=== PATIENT | female | born 1935 | race Caucasian/White ===

== ENCOUNTER 2021-12-24 17:44 | Emergency (ER) | payer MEDICARE ==
[~2021-12-24] VITALS: Ht 167.6 cm; Wt 86.4 kg
[~2021-12-24 17:44] MED LIST: *BLDWK7; *HOLTER -; *MAMMOGRAM; ACIPHEX; ACTONEL35 PO; ASPI325T; BONIVA IV; BONIVA PO; CELEBRE200; CIPRO500 PO; COLA100C2; CORE6.25; CYMBALTA20 PO; CYMBALTA30 PO; DRISDOL50 PO; EFFEXORXL7; FLAGYL500 PO; LOTRISCREA TOPICALLY; MACROBID; MACROBID PO; NEURONTIN3 PO; PAMELOR PO; PENVK250 PO; PREMARI625 PO; PREMARIVAG VAGINALLY; PREVACID30 PO; PROTONIX40; THERGRAN; TRAZ0DON5; ULTRAM50; VICODIN7.5 PO; VIOXX25 PO; VITAMIND PO; XALANTAN; ZANTAC150 PO; [UNRECOGNIZED DRUG - OTHER]; [UNRECOGNIZED DRUG - SUPPLY]
[2021-12-24 19:40] VITALS: BP 157/91
== END 2021-12-24 19:53 | disposition home or self-care (01) ==
LOC: EDBD 17:44 → M ED 17:44
DX: S09.90XA Unspecified injury of head, initial encounter (principal); W01.0XXA Fall on same level from slipping, tripping and stumbling without subsequent striking against object, initial encounter; K58.9 Irritable bowel syndrome, unspecified; M06.9 Rheumatoid arthritis, unspecified; K21.9 Gastro-esophageal reflux disease without esophagitis; Z86.79 Personal history of other diseases of the circulatory system; Z79.01 Long term (current) use of anticoagulants; Z88.0 Allergy status to penicillin; Z88.6 Allergy status to analgesic agent; Z91.011 Allergy to milk products; Z79.899 Other long term (current) drug therapy; Y93.9 Activity, unspecified; Y99.9 Unspecified external cause status; Y92.9 Unspecified place or not applicable

== ENCOUNTER → 2022-03-14 | Outpatient (CLI) | payer MEDICARE | LOC: M PLAIMG 14:07 → M RAD 14:07 | PROVIDERS: ATTEND Internal Medicine | DX: G91.2 (Idiopathic) normal pressure hydrocephalus (principal) ==

== ENCOUNTER 2022-04-13 15:20 | Emergency (ER) | payer MEDICARE ==
[~2022-04-13] VITALS: Ht 170.2 cm; Wt 91.8 kg
[2022-04-13 15:42] VITALS: BP 121/80
[2022-04-13] MEDS ORDERED: FURO20TA2 PO (16:18)
[2022-04-13] MEDS ORDERED: XARE20TA PO (16:18)
[2022-04-13] MEDS ORDERED: XALA0.007 OU (16:18)
[2022-04-13] MEDS ORDERED: LOPE2TAB12 PO (16:18)
[2022-04-13] MEDS ORDERED: METO1TAB87 PO (16:18)
[2022-04-13] MEDS ORDERED: FLON1SPR NARES (16:18)
[2022-04-13] MEDS ORDERED: LEVO75TA4 PO (16:18)
[2022-04-13] MEDS ORDERED: HOME MED LIST COMPLETE! XX SCH (16:20)
== END 2022-04-13 18:37 | disposition home or self-care (01) ==
LOC: EDBD 15:20 → M ED 16:15
DX: E16.2 Hypoglycemia, unspecified (principal); W07.XXXA Fall from chair, initial encounter; K58.9 Irritable bowel syndrome, unspecified; Z88.0 Allergy status to penicillin; Z88.1 Allergy status to other antibiotic agents; Z88.8 Allergy status to other drugs, medicaments and biological substances; Z91.011 Allergy to milk products; Z79.01 Long term (current) use of anticoagulants; Z79.899 Other long term (current) drug therapy

== ENCOUNTER → 2022-05-19 | Outpatient (CLI) | payer MEDICARE ==
[~2022-05-19] MED LIST changes: +FLON1SPR NARES; +FURO20TA2 PO; +LEVO75TA4 PO; +LOPE2TAB12 PO; +METO1TAB87 PO; +XALA0.007 OU; +XARE20TA PO
== END ==
LOC: M WUC 15:05
PROVIDERS: ATTEND Internal Medicine
DX: R06.00 Dyspnea, unspecified (principal); I51.7 Cardiomegaly

== ENCOUNTER 2022-10-21 06:04 | Emergency (ER) | payer MEDICARE ==
[~2022-10-21] VITALS: Ht 167.6 cm; Wt 86.4 kg
[2022-10-21 09:30] VITALS: BP 145/75
== END 2022-10-21 09:58 | disposition home or self-care (01) ==
LOC: M ED 06:04
DX: S00.93XA Contusion of unspecified part of head, initial encounter (principal); S40.011A Contusion of right shoulder, initial encounter; W01.0XXA Fall on same level from slipping, tripping and stumbling without subsequent striking against object, initial encounter; K21.9 Gastro-esophageal reflux disease without esophagitis; I10 Essential (primary) hypertension; E78.5 Hyperlipidemia, unspecified; K58.9 Irritable bowel syndrome, unspecified; Z86.79 Personal history of other diseases of the circulatory system; Z88.0 Allergy status to penicillin; Z88.1 Allergy status to other antibiotic agents; Z88.2 Allergy status to sulfonamides; Z88.8 Allergy status to other drugs, medicaments and biological substances; Z91.011 Allergy to milk products; Z79.899 Other long term (current) drug therapy

== ENCOUNTER 2023-03-27 19:44 | Emergency (ER) | payer MEDICARE ==
[2023-03-27 23:00] VITALS: BP 114/63; TEMP 98.4; O2SAT 91
== END 2023-03-27 23:00 | disposition home or self-care (01) ==
LOC: M ED 19:44 → EDBD 19:44 → M ED 23:00
DX: S09.90XA Unspecified injury of head, initial encounter (principal); W01.0XXA Fall on same level from slipping, tripping and stumbling without subsequent striking against object, initial encounter; K21.9 Gastro-esophageal reflux disease without esophagitis; K58.9 Irritable bowel syndrome, unspecified; Z86.79 Personal history of other diseases of the circulatory system; Z88.0 Allergy status to penicillin; Z88.1 Allergy status to other antibiotic agents; Z88.2 Allergy status to sulfonamides; Z88.8 Allergy status to other drugs, medicaments and biological substances; Z91.011 Allergy to milk products

== ENCOUNTER 2023-08-20 12:47 | Emergency (ER) | payer MEDICARE ==
[2023-08-20] MEDS ORDERED: ISOVUE-370 76% 100ML VIAL As Ordered ONE (13:55)
[2023-08-20 16:17] VITALS: BP 109/60; TEMP 96.8; O2SAT 95
== END 2023-08-20 16:53 | disposition home or self-care (01) ==
LOC: M ED 12:47
DX: S00.83XA Contusion of other part of head, initial encounter (principal); S20.219A Contusion of unspecified front wall of thorax, initial encounter; W01.198A Fall on same level from slipping, tripping and stumbling with subsequent striking against other object, initial encounter; M19.012 Primary osteoarthritis, left shoulder; M19.011 Primary osteoarthritis, right shoulder; J98.11 Atelectasis; I51.7 Cardiomegaly; K58.9 Irritable bowel syndrome, unspecified; M50.122 Cervical disc disorder at C5-C6 level with radiculopathy; Z96.652 Presence of left artificial knee joint; Z86.79 Personal history of other diseases of the circulatory system; Z88.0 Allergy status to penicillin; Z88.1 Allergy status to other antibiotic agents; Z88.2 Allergy status to sulfonamides; Z88.8 Allergy status to other drugs, medicaments and biological substances; Z91.011 Allergy to milk products; Z79.51 Long term (current) use of inhaled steroids; Z79.891 Long term (current) use of opiate analgesic; Z79.899 Other long term (current) drug therapy; Z95.0 Presence of cardiac pacemaker; Y92.009 Unspecified place in unspecified non-institutional (private) residence as the place of occurrence of the external cause; Y93.89 Activity, other specified; Y99.9 Unspecified external cause status
CPT/HCPCS: 36415; 70450; 70486; 71260; 72125; 73030; 80047; 99285; Q9967

== ENCOUNTER → 2024-03-12 | Outpatient (REF) ==
[~2024-03-12] MED LIST changes: +ACET1TAB55 PO; +BENZ-18 PO; +MUCI600T31 PO; +VENTAER INH
[2024-03-12 08:54] LABS: HEMATOCRIT 47.6 % (36.0-47.0); HEMOGLOBIN 15.7 g/dl (12.0-15.5); MEAN CORPUSCULAR HEMOGLOBIN 29.9 pg (27.0-33.0); MEAN CORPUSCULAR VOLUME 90.7 fl (80.0-96.0); PLATELET COUNT, AUTOMATED 265 10^3/uL (150-450); RED BLOOD COUNT 5.25 10^6/uL (4.00-5.40); WHITE BLOOD COUNT 6.5 10^3/uL (4.0-10.0)
[2024-03-12 09:28] LABS: BLOOD UREA NITROGEN 17 MG/DL (9-23); CARBON DIOXIDE LEVEL 27 MMOL/L (20-31); CHLORIDE LEVEL 107 MMOL/L (98-107); CREATININE FOR GFR 0.65 MG/DL (0.55-1.30); GLOMERULAR FILTRATION RATE > 60.0 (>32); GLUCOSE, FASTING 78 MG/DL (74-106); SODIUM LEVEL 140 MMOL/L (136-145)
== END ==
PROVIDERS: ATTEND Physician Assistant
DX: I50.9 Heart failure, unspecified (principal)

== ENCOUNTER → 2024-03-19 | Outpatient (REF) ==
[2024-03-19 10:05] LABS: HEMATOCRIT 45.3 % (36.0-47.0); HEMOGLOBIN 14.6 g/dl (12.0-15.5); MEAN CORPUSCULAR HEMOGLOBIN 29.8 pg (27.0-33.0); MEAN CORPUSCULAR HGB CONC 32.2 g/dl (32.0-36.5); MEAN CORPUSCULAR VOLUME 92.4 fl (80.0-96.0); PLATELET COUNT, AUTOMATED 218 10^3/uL (150-450); WHITE BLOOD COUNT 6.4 10^3/uL (4.0-10.0)
[2024-03-19 10:11] LABS: BLOOD UREA NITROGEN 18 MG/DL (9-23); CALCIUM LEVEL 8.7 MG/DL (8.3-10.6); CARBON DIOXIDE LEVEL 29 MMOL/L (20-31); CHLORIDE LEVEL 108 MMOL/L (98-107); CREATININE FOR GFR 0.77 MG/DL (0.55-1.30); GLOMERULAR FILTRATION RATE > 60.0 (>32); GLUCOSE, FASTING 92 MG/DL (74-106); POTASSIUM SERUM 3.7 MMOL/L (3.5-5.1); SODIUM LEVEL 141 MMOL/L (136-145)
== END ==
PROVIDERS: ATTEND Physician Assistant
DX: I50.9 Heart failure, unspecified (principal)

== ENCOUNTER → 2024-03-31 | Outpatient (REF) ==
[2024-03-31 08:25] LABS: HEMATOCRIT 45.4 % (36.0-47.0); HEMOGLOBIN 14.4 g/dl (12.0-15.5); MEAN CORPUSCULAR HGB CONC 31.7 g/dl (32.0-36.5); MEAN CORPUSCULAR VOLUME 91.5 fl (80.0-96.0); PLATELET COUNT, AUTOMATED 254 10^3/uL (150-450); RED BLOOD COUNT 4.96 10^6/uL (4.00-5.40); WHITE BLOOD COUNT 5.4 10^3/uL (4.0-10.0)
[2024-03-31 09:00] LABS: BLOOD UREA NITROGEN 17 MG/DL (9-23); CALCIUM LEVEL 8.8 MG/DL (8.3-10.6); CARBON DIOXIDE LEVEL 31 MMOL/L (20-31); CHLORIDE LEVEL 105 MMOL/L (98-107); CREATININE FOR GFR 0.74 MG/DL (0.55-1.30); GLOMERULAR FILTRATION RATE > 60.0 (>32); GLUCOSE, FASTING 107 MG/DL (74-106); SODIUM LEVEL 141 MMOL/L (136-145)
== END ==
PROVIDERS: ATTEND Physician Assistant
DX: I51.7 Cardiomegaly (principal); J81.1 Chronic pulmonary edema; Z95.0 Presence of cardiac pacemaker

== ENCOUNTER → 2024-04-09 | Outpatient (REF) ==
[2024-04-09 09:47] LABS: HEMOGLOBIN 13.9 g/dl (12.0-15.5); MEAN CORPUSCULAR HEMOGLOBIN 29.6 pg (27.0-33.0); MEAN CORPUSCULAR HGB CONC 31.6 g/dl (32.0-36.5); MEAN CORPUSCULAR VOLUME 93.8 fl (80.0-96.0); PLATELET COUNT, AUTOMATED 247 10^3/uL (150-450); RED BLOOD COUNT 4.69 10^6/uL (4.00-5.40); WHITE BLOOD COUNT 5.6 10^3/uL (4.0-10.0)
[2024-04-09 10:08] LABS: BLOOD UREA NITROGEN 17 MG/DL (9-23); CALCIUM LEVEL 9.1 MG/DL (8.3-10.6); CARBON DIOXIDE LEVEL 30 MMOL/L (20-31); CHLORIDE LEVEL 104 MMOL/L (98-107); CREATININE FOR GFR 0.76 MG/DL (0.55-1.30); GLOMERULAR FILTRATION RATE > 60.0 (>32); GLUCOSE, FASTING 101 MG/DL (74-106); POTASSIUM SERUM 4.1 MMOL/L (3.5-5.1); SODIUM LEVEL 141 MMOL/L (136-145)
== END ==
PROVIDERS: ATTEND Internal Medicine
DX: I50.9 Heart failure, unspecified (principal)

== ENCOUNTER → 2024-05-07 | Outpatient (REF) | PROVIDERS: ATTEND Internal Medicine | DX: I50.9 Heart failure, unspecified (principal); Z53.9 Procedure and treatment not carried out, unspecified reason ==